=== PATIENT | female | born 1955 | race Caucasian/White ===

== ENCOUNTER 2022-05-20 14:53 | Emergency (ER) | payer OTHER, MEDICAID ==
[~2022-05-20] VITALS: Ht 152.4 cm; Wt 62.1 kg
[2022-05-20 14:57] VITALS: BP 173/82
--- NOTE | 2022-05-20 15:02 | NUR ---
PT AMBULATED TO BED 6. URINE COLLECTED
--- NOTE | 2022-05-20 15:05 | NUR ---
Dr. Watson evaluating patient at bedside.
--- NOTE | 2022-05-20 15:15 | NUR ---
67 y/o female bib self with c/o painful urination x3 days. Patient describes pain when urinating and when sitting. Patient denies any hematuria, fever or chills. Patient has suprapubic tenderness. Patient denies any foul smell to urine. Medical History: HTN NKDA
[2022-05-20 15:16] LABS: APPEARANCE,URINE CLEAR (CLEAR); BILIRUBIN,URINE NEGATIVE (NEGATIVE); BLOOD, URINE 1+ (NEGATIVE); COLOR,URINE YELLOW (YELLOW); LEUKOCYTE ESTERASE ,URINE NEGATIVE (NEGATIVE); NITRITE, URINE NEGATIVE (NEGATIVE); PH,URINE 6.5 (5.0-9.0); UGLUCOSE NEGATIVE (NEGATIVE)
[2022-05-20 15:37] LABS: RBC,URINE 0-5 /HPF (0-5); WBC,URINE NONE SEEN /HPF (0-5)
--- NOTE | 2022-05-20 16:26 | NUR ---
Chaperoned US tech for procedure
[2022-05-20] MEDS ORDERED: ACET-10509 PO (17:14)
[2022-05-20] MEDS ORDERED: CEPH-588 PO (17:14)
--- NOTE | 2022-05-20 17:17 | NUR ---
Dr. Watson re-evaluating patient at bedside.
--- NOTE | 2022-05-20 17:50 | NUR ---
The patient's care was reviewed and supervised by [facility], RN.
--- NOTE | 2022-05-20 17:51 | NUR ---
Patient discharged with v/s stable. Written and verbal after care instructions given and explained. Patient alert, oriented and verbalized understanding of instructions. Ambulatory with steady gait. All questions addressed prior to discharge. ID band removed. Patient advised to follow up with PMD. Rx of KEFLEX, TYLENOL given. Patient educated on indication of medication including possible reaction and side effects. Opportunity to ask questions provided and answered.
== END 2022-05-20 17:51 | disposition home or self-care (01) ==
LOC: MED 14:53
DX: R19.00 Intra-abdominal and pelvic swelling, mass and lump, unspecified site (principal); J45.909 Unspecified asthma, uncomplicated; I10 Essential (primary) hypertension; Z79.899 Other long term (current) drug therapy
CPT/HCPCS: 76830; 81001; 99284; Q0092